=== PATIENT | male | born 1950 | race African-American/Black ===

== ENCOUNTER 2019-03-08 14:08 | Inpatient (IN) ==
[2019-03-08] MEDS ORDERED: LASIX PO PRN (19:49)
[2019-03-08] MEDS ORDERED: LASIX IV SCH (20:00)
[2019-03-08 20:41] LABS: BASO# 0.02 X1000 (0.0-0.2); BASO% 0.6 % (0.0-0.8); EOS# 0.24 X1000 (0.0-0.7); EOS% 6.6 % (0.0-10.0); HEMATOCRIT 25.5 % (42.0-52.0); HEMOGLOBIN 7.9 g/dL (14.0-18.0); LYMPH# 1.13 X1000 (1.2-3.4); LYMPH% 31.2 % (20.5-51.1); MCH 23.1 PG (27-31); MCV 74.6 FL (81-99); MONO% 16.6 % (1.7-9.3); NEUT# 1.63 X1000 (1.4-6.5); PLT 69 X1000 (130-400); RBC 3.42 XMIL (4.7-6.1); RDW 20.9 % (11.5-14.5); WBC 3.62 X1000 (4.8-10.8)
[2019-03-08] MEDS ORDERED: LIPITOR PO SCH (21:00)
[2019-03-08] MEDS ORDERED: NS 500 ML IV SCH (21:00)
[2019-03-08 21:01] LABS: IRON SATURATION 6 %; TIBC 419 ug/dL; TOTAL IRON 24 ug/dL (53-167); UNBOUND IRON 395 ug/dL (112-346)
[2019-03-08 21:29] LABS: ANISOCYTOSIS 1+; EOS 2 % (1-10); HYPOCHROM 2+; LYMPHS 40 % (21-51); MICROCYTOSIS 2+; MONO 13 % (1-9); SEGS 45 % (42-75)
[2019-03-08] MEDS: ENTRESTO 49 MG-51 MG TABLET PO SCH (21:48)
--- NOTE | 2019-03-08 22:41 | HISTORY AND PHYSICAL ---
CHIEF COMPLAINT: Fatigue and weakness. HISTORY OF PRESENT ILLNESS: He is a 68-year-old, male, came to my office after 6 months since last admission at [facility]. He was admitted last admission acute blood loss anemia due to severe epistaxis complicated by aspirin and Coumadin. He stopped taking Coumadin. He did require 5 units of packed RBC, and 1 unit of fresh frozen plasma with the rhino pack on the right side in July 2018. Today in my office, he appears to be pale and he has a little bit of shortness of breath. CBC: Hemoglobin 7, hematocrit 24. He has been admitted to the hospital basically for observation for blood transfusion. In the past, the patient had a negative GI workup by Dr. Shipley. PAST MEDICAL HISTORY: Ischemic cardiomyopathy, chronic congestive heart failure, EF 20%. Type 2 diabetes, gastroesophageal reflux disease with esophagitis, gout, hyperlipidemia, hypertension, nicotine dependency. History of ventricular tachycardia status post AICD, abnormal chest x-ray with the right-sided fibrosis. Abdominal aneurysm repair 2016. PAST SURGICAL HISTORY: Implantable cardioverter-defibrillator 2016. Lung surgery, right upper lobectomy, lung cancer by Dr. Shipley. AAA repair by Dr. Mitchell. MEDICINES: Amiodarone 200 mg daily, Lasix 40 daily, Protonix 40 daily, Lipitor 80 daily, Lanoxin 125 mcg daily, potassium 20 mEq daily, Neurontin 100 daily and Crestor 49/51 tab p.o. b.i.d., Lasix 10 daily. Warfarin was stopped. SOCIAL HISTORY: Single, one kid. No smoking, no alcohol. Living in [place]. Disabled from . FAMILY HISTORY: Father at the age of 68, not known. Mom from colon cancer at 78. HEALTH MAINTENANCE: Flu vaccine 2017, pneumococcal 2008. Last physical in March 2018, colonoscopy [address] Shipley. Hiatal hernia. Negative colonoscopy. REVIEW OF SYSTEMS: HEENT: No headache, no vision problem. No earache. No sore throat. Slightly fatigued. Cardiopulmonary: No chest pain, shortness of breath, PND, orthopnea. GI: No nausea, vomiting, abdominal pain, acid reflux symptoms. No bleeding per rectum. : No history of hesitancy, frequency, dysuria. No swelling of feet. No joint pain. Neurologic: No focal symptoms or weakness. PHYSICAL EXAMINATION: VITAL SIGNS: Temperature is 98, pulse 70, blood pressure 135/69. 6 feet 2 inches, 240 pounds. HEENT: Atraumatic, normocephalic. Pupils equal, react to light. Pale. TMs are normal. JVD is not elevated. CHEST: Bilateral air entry. HEART: Sounds are regular with a systolic murmur in the left lower sternal border. AICD placed. ABDOMEN: Belly is soft, nontender. Good bowel sounds. EXTREMITIES: Trace pedal edema. No neurological deficits. INVESTIGATIONS: CBC: White cell count 3.6, hematocrit 25, platelets 69, iron 24, TIBC 419. ASSESSMENT AND PLAN: 1. A 68-year-old, male, admitted to the hospital basically symptomatic anemia and Hemoccult stools. The patient stopped taking Coumadin and the patient is on amiodarone. Will follow up on surveillance. Do the thyroid function tests, LFTs and chest x-ray. 2. Nonsustained ventricular tachycardia, ischemic cardiomyopathy, on Cordarone 200 daily. Continue on digoxin, Lasix and Crestor. 3. Hyperlipidemia on Lipitor. 4. Check the CBC in the morning and will follow up. cc: Carlos Hendrickson MD
[2019-03-08 23:03] LABS: AGAP 9; ALB/GLOB RATIO 0.8; ALBUMIN 3.2 g/dL (3.5-5.0); ALKALINE PHOSPHATASE 165 U/L (32-122); BUN 10 mg/dL (8-22); CALCIUM 8.5 mg/dL (8.8-10.2); CHLORIDE 105 mmol/L (98-107); COSMO 277; CREATININE 1.2 mg/dL (0.7-1.2); ESTIMATED GFR > 60; GLUCOSE 98 mg/dL (70-104); GOT 82 U/L (10-34); GPT 68 U/L (10-44); POTASSIUM 3.6 mmol/L (3.5-5.1); SODIUM 139 mmol/L (136-145); TCO2 25 mmol/L (25-35); TOTAL BILIRUBIN 0.66 mg/dL (0.20-1.00); TOTAL PROTEIN 7.2 g/dL (6.3-8.3)
[2019-03-09] MEDS ORDERED: PROTONIX PO SCH (07:00)
[2019-03-09 07:32] LABS: BASO# 0.02 X1000 (0.0-0.2); BASO% 0.5 % (0.0-0.8); EOS# 0.29 X1000 (0.0-0.7); EOS% 7.5 % (0.0-10.0); HEMATOCRIT 27.8 % (42.0-52.0); HEMOGLOBIN 8.6 g/dL (14.0-18.0); LYMPH# 0.77 X1000 (1.2-3.4); LYMPH% 19.8 % (20.5-51.1); MCH 23.7 PG (27-31); MCHC 30.9 g/dL (33-37); MCV 76.6 FL (81-99); MONO# 0.68 X1000 (0.11-0.59); MONO% 17.5 % (1.7-9.3); NEUT# 2.12 X1000 (1.4-6.5); NEUT% 54.7 % (42.2-75.2); PLT 57 X1000 (130-400); RBC 3.63 XMIL (4.7-6.1); RDW 20.1 % (11.5-14.5); WBC 3.88 X1000 (4.8-10.8)
[2019-03-09 07:46] LABS: AGAP 7; BUN 10 mg/dL (8-22); CALCIUM 8.3 mg/dL (8.8-10.2); CHLORIDE 103 mmol/L (98-107); COSMO 272; CREATININE 1.1 mg/dL (0.7-1.2); ESTIMATED GFR > 60; GLUCOSE 125 mg/dL (70-104); POTASSIUM 3.4 mmol/L (3.5-5.1); SODIUM 136 mmol/L (136-145); TCO2 26 mmol/L (25-35)
[2019-03-09 07:56] LABS: EOS 4 % (1-10); LYMPHS 18 % (21-51); MONO 10 % (1-9); SEGS 68 % (42-75)
[2019-03-09 07:57] LABS: HYPOCHROM 1+; LARGE PLATELETS 1+
[2019-03-09 07:58] LABS: FREE T4 1.13 ng/dL (0.93-1.70); TSH 3.99 uIUmL (0.27-4.20)
[2019-03-09] MEDS ORDERED: KLOR-CON PO ONE (08:01)
--- NOTE | 2019-03-09 08:58 | Diag Imaging Result Doc PS360 ---
EXAM: CHEST-2 VIEWS 03/08/2019 HISTORY: SOB TECHNIQUE: PA and lateral chest COMMENT: There is cardiomegaly. There is blunting of the right costophrenic angle. There is some ill-defined opacity in the lateral right base which was also apparently present on 04/04/2017. IMPRESSION: Cardiomegaly. Pleural and parenchymal fibrosis on the right. Electronically signed by Clarence Infante 03/09/2019 8:55 AM
[2019-03-09] MEDS ORDERED: NEURONTIN PO SCH (09:00)
[2019-03-09] MEDS ORDERED: LASIX PO SCH (09:00)
[2019-03-09] MEDS ORDERED: CORDARONE PO SCH (09:00)
[2019-03-09] MEDS ORDERED: KLOR-CON PO SCH (09:00)
[2019-03-09] MEDS ORDERED: LANOXIN PO SCH (09:00)
[2019-03-09] MEDS: ENTRESTO 49 MG-51 MG TABLET PO SCH (09:42)
[2019-03-09] MEDS ORDERED: PNEUMOVAX 23 IM ONE (12:30)
[2019-03-09 12:50] VITALS: BP 127/73
[2019-03-09] MEDS ORDERED: LASIX IV ONE (13:00)
--- NOTE | 2019-03-13 15:21 | DISCHARGE SUMMARY ---
ADMISSION DATE: 03/08/2019 DISCHARGE DATE: 03/09/2019 DISCHARGING DIAGNOSIS: 1. Symptomatic anemia due to occult GI bleeding. SECONDARY DIAGNOSES: 1. Ischemic cardiomyopathy EF 20%. 2. Chronic systolic heart failure, stable. 3. Type 2 diabetes acid reflux disease with esophagitis. 4. Gout. 5. Hyperlipidemia. 6. Hypertension. 7. History of ventricular tachycardia status post AICD. 8. Abdominal aneurysm repair. PROCEDURES: Transfusion of 3 units of packed RBCs. BRIEF HISTORY: He is a 68-year-old male stopped taking Coumadin originally place for PAF and due to epistaxis, recurrent anemia. He has been doing very well. He was found to have pale hemoglobin 7, hematocrit 23 in my office. Initial Hemoccult was negative. He was admitted to the hospital basically for blood transfusion. He was given 3 units of packed RBCs. He was not able to give any Hemoccult stools. LABS: CBC: White cell count 3.8, hematocrit 27.8, platelets 57,000. SMA-7: Sodium 138, potassium 3.4, BUN 10, creatinine 1.1, glucose 125. Iron is low. TIBC is high. LFTs were slightly high. Thyroid function tests were normal. Chest x-ray was stable. Thrombocytopenia, stable. DISCHARGE INSTRUCTIONS: The patient was discharged home with the following instructions: 1. Cordarone 200 daily. 2. Slightly elevated LFTs. Continue to monitor every 6 months. Chest x-ray, LFTs and thyroid function tests, thrombocytopenia. 3. Discontinue Coumadin. 4. Lasix 40 daily. 5. Protonix 40 daily. 6. Lipitor 80 daily. 7. Lanoxin 125 mcg daily. 8. Potassium 10 mEq daily. 9. Neurontin 100 daily. 10. Entresto 49/51, one puff p.o. b.i.d. 11. Lasix 10 mg daily. 12. Follow up on Hemoccult stools x3 and previous EGD, colonoscopy was negative by Dr. Shipley and repeat CBC, BMP in my office next week. cc: MD Edu Dickerson
== END 2019-03-09 15:00 | disposition home or self-care (01) | DRG 812 ==
LOC: DIRADM 14:08 → 4N 16:43
PROVIDERS: ADMIT Internal Medicine; ATTEND Internal Medicine
CPT/HCPCS: 36430; 71020; 71046; 80048; 80053; 82728; 83540; 83550; 84439; 84443; 85025; 86850; 86900; 86901; 86920; 90732; A9270; J1940; J7040; P9016

== ENCOUNTER 2019-06-06 11:02 | Inpatient (IN) ==
[2019-06-06] MEDS ORDERED: NS 500 ML IV ONE (11:14)
[2019-06-06 16:41] LABS: MCHC 29.5 g/dL (33-37); MCV 77.8 FL (81-99); PLT 74 X1000 (130-400); RBC 2.57 XMIL (4.7-6.1); RDW 19.5 % (11.5-14.5); WBC 3.39 X1000 (4.8-10.8)
[2019-06-06 16:43] LABS: HEMOGLOBIN 5.9 g/dL (14.0-18.0)
[2019-06-06] MEDS ORDERED: NS 500 ML ONE (18:09)
[2019-06-06] MEDS: ENTRESTO 49 MG-51 MG TABLET PO SCH (20:58)
--- NOTE | 2019-06-07 02:55 | HISTORY AND PHYSICAL ---
CHIEF COMPLAINT: Symptomatic anemia. HISTORY OF PRESENT ILLNESS: He is a 69-year-old male. He came to my office for a physical yesterday. He appears to be pale. He stopped taking Coumadin due to occult GI bleeding in the past. The patient had a GI workup by Dr. Shipley. In my office yesterday, Hemoccult negative. Hemoglobin is 6, hematocrit 19. He has been admitted to the hospital today for evaluation of occult GI bleeding. Hemodynamics were stable. He needs a blood transfusion, probably will re-evaluate EGD and colonoscopy along with capsule endoscopy. A GI consult was obtained by Dr. Wiseman. The patient is not taking any anticoagulation. PAST MEDICAL HISTORY: 1. Ischemic cardiomyopathy. 2. Chronic congestive heart failure, EF 20%. 3. Type 2 diabetes. 4. Acid reflux disease with esophagitis. 5. Gout. 6. Hyperlipidemia. 7. Hypertension. 8. Nicotine dependency. 9. History of ventricular tachycardia, status post AICD. 10. Abnormal chest x-ray with right-sided fibrosis. 11. Abdominal aneurysm repair in 2016. PAST SURGICAL HISTORY: 1. AICD in 2016. 2. Right upper lobectomy by Dr. Shipley. 3. Abdominal aortic aneurysm repair by Dr. Mitchell. MEDICATIONS: Cordarone 200 daily; Lasix 40 daily; Protonix 40 daily; Lipitor 80 mg daily; Lanoxin 125 mcg daily; potassium 20 mEq daily; Neurontin 100 mg daily; Entresto 49/51 one tablet p.o. b.i.d.; Lasix 20 mg daily. ALLERGIES: Steroids. SOCIAL HISTORY: Single, one child. No smoking, no alcohol. Living in [place]. Disabled from . FAMILY HISTORY: Father at the age of 68, cause was not known. Mother of colon cancer at 78. HEALTH MAINTENANCE: Flu vaccine in 2018, pneumococcal 2019. Colonoscopy in [address] Shipley, reported as hiatal hernia. REVIEW OF SYSTEMS: HEENT: No headache, no vision problem. No dizziness. No sore throat. Neck: No goiter. No lymphadenopathy. Cardiopulmonary: No chest pain, shortness of breath, PND or orthopnea. Gastrointestinal: No nausea, vomiting or abdominal pain. No altered bowel habits. No bleeding per rectum. Genitourinary: No history of dysuria, hesitancy or frequency. No swelling of legs or cramping in the legs. No back pain. Neurologic: No focal symptoms or weakness. PHYSICAL EXAMINATION: VITAL SIGNS: Temperature is 97.3 degrees, pulse 79, blood pressure 115/61. HEENT: Pale. TMs are normal. Nose and throat within normal limits. NECK: Supple. No lymphadenopathy. No goiter. CHEST: Bilateral air entry. HEART: Sounds are regular. ABDOMEN: Belly is soft, nontender. RECTAL EXAM: Prostate is normal. Heme-negative stool. EXTREMITIES: No peripheral edema or cyanosis. NEUROLOGIC: No obvious neurological deficits. LABORATORY DATA: White cell count 3.3, hemoglobin 5.9, hematocrit is 20, MCV 77, platelets 74,000. ASSESSMENT AND PLAN: 1. A 69-year-old male admitted to the hospital with recurrent gastrointestinal bleeding. Stopped Coumadin from the previous admission, still he was anemic. Occult gastrointestinal bleeding. Needs further workup, transfusion of 2 units of packed red blood cells. Dr. Wiseman consult. 2. Reconcile home medications. 3. We will repeat the labs in the morning, orthostatic blood pressure. We will continue to monitor. cc: Carlos Hendrickson MD
[2019-06-07] MEDS: PROTONIX PO SCH ×2 (05:44→06:17)
[2019-06-07 08:10] LABS: HEMATOCRIT 21.3 % (42.0-52.0); HEMOGLOBIN 6.6 g/dL (14.0-18.0); MCV 80.7 FL (81-99); PLT 64 X1000 (130-400); RBC 2.64 XMIL (4.7-6.1); RDW 18.3 % (11.5-14.5); WBC 3.74 X1000 (4.8-10.8)
[2019-06-07] MEDS ORDERED: NS 500 ML IV ONE (08:13)
[2019-06-07] MEDS ORDERED: POTASSIUM CHLORIDE PO SCH (09:00)
[2019-06-07] MEDS: LASIX PO SCH (09:59)
[2019-06-07] MEDS: NEURONTIN PO SCH (09:59)
[2019-06-07] MEDS: ENTRESTO 49 MG-51 MG TABLET PO SCH ×2 (09:59→20:40)
[2019-06-07] MEDS: LIPITOR PO SCH (09:59)
[2019-06-07] MEDS: CORDARONE PO SCH (09:59)
[2019-06-07] MEDS: LANOXIN PO SCH (10:00)
--- NOTE | 2019-06-07 11:15 | Diag Imaging Result Doc PS360 ---
EXAM: US ABDOMEN-COMPLETE INDICATION: elevated liver function COMPARISON: None. FINDINGS: The gallbladder appears normal with no stones, wall thickening, or pericholecystic fluid. The common bile duct is normal in diameter. Sonographic Rebolledo's sign was reported to be negative. The liver is mildly prominent measuring up to 19.3 cm in length. The liver is unremarkable, otherwise. It exhibits normal echotexture with no discrete mass. Portal venous flow is hepatopetal. The pancreatic tail is obscured by gas. The visualized portion of the pancreas is unremarkable. The distal aorta is obscured by bowel gas. The remainder of the aorta is unremarkable. The spleen is mildly prominent measuring up to 13.9 cm in length. The kidneys are grossly unremarkable. IMPRESSION: Mild hepatosplenomegaly. Electronically signed by Gregory Isbell 06/07/2019 11:13 AM
[2019-06-07 12:50] LABS: AGAP 7; ALB/GLOB RATIO 0.9; ALBUMIN 3.1 g/dL (3.5-5.0); ALKALINE PHOSPHATASE 130 U/L (32-122); BUN 14 mg/dL (8-22); CALCIUM 7.9 mg/dL (8.8-10.2); CHLORIDE 107 mmol/L (98-107); COSMO 273; CREATININE 0.9 mg/dL (0.7-1.2); ESTIMATED GFR > 60; GLUCOSE 106 mg/dL (70-104); GOT 70 U/L (10-34); GPT 61 U/L (10-44); POTASSIUM 4.1 mmol/L (3.5-5.1); SODIUM 136 mmol/L (136-145); TCO2 22 mmol/L (25-35); TOTAL BILIRUBIN 0.59 mg/dL (0.20-1.00); TOTAL PROTEIN 6.7 g/dL (6.3-8.3)
[2019-06-07] MEDS ORDERED: GOLYTELY PO ONE (14:00)
[2019-06-07 18:07] LABS: RETIC% 0.99 % (0.8-2.1)
--- NOTE | 2019-06-07 19:17 | GASTROENTEROLOGY CONSULTATION ---
DATE: 06/07/2019 ATTENDING PHYSICIAN: Dr. Hendrickson. PRIMARY CARE DOCTORS: Dr. Hendrickson. REASON FOR CONSULTATION: Anemia and pancytopenia. 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 He presented Dr. Hendrickson's office and was noted to be pale. He had been anemic for many years. He had EGD and colonoscopy done a few years ago by Dr. Shipley which was normal. On admission, his hemoglobin was 6 and hematocrit 19. He was given 2 units of blood transfusion. The patient has been experiencing frequent epistaxis since September 2018. He has had 4 major episode of nose bleeding requiring ENT management and treatment. According to him, every time he has a massive nose he swallows blood and this makes his stools darker. He denies any vomiting blood or passing bright red blood in the stools. He has seen some darkening of the stool occasionally. During this admission, he is noted to be pancytopenic. His platelets are low as well and a low white cell count. The patient is noted to be evaluated by a biostatistics director. We will request a Hematology consultation. PAST MEDICAL HISTORY: Cardiomyopathy, congestive heart failure ejection fraction of 20%, type 2 diabetes, acid reflux esophagitis, gout, hyperlipidemia, hypertension, nicotine dependency, history of pancreatitis, cardiac status AICD. Abnormal chest x-ray showing right-sided fibrosis, abdominal aneurysm repair in 2016. PAST SURGICAL HISTORY: AICD in 2016, right upper lobectomy by Dr. Shipley, abdominal aortic aneurysm per Dr. Mitchell, EGD and colonoscopy done per the records on 03/24/[address] Shipley which showed hiatal hernia with mild gastritis. The colon was essentially normal. MEDICATIONS: In the hospital include: Amiodarone, Lipitor, digoxin, Lasix, Neurontin, Protonix, Entresto, normal saline given once and potassium chloride. The patient is on a heart healthy diet. ALLERGIES TO: Steroids and neuromuscular blockers. SOCIAL HISTORY: He is single. He has 1 child. Denies any smoking or alcohol. Lives in [place]. He is disabled from . used to work at . FAMILY HISTORY: Father at the age of 68, cause was not known. Mother of colon cancer at age of 78. REVIEW OF SYSTEMS: Denies any fevers, rigors, chills, chest pain. Does have shortness of breath, feeling weak and tired and has improved slightly since he received 2 units blood transfusion. Denies any nausea, vomiting, or vomiting blood. Does have some occasional dark stools. He has history of frequent epistaxis. The last major episode was 2 months ago. He does complain of easy bruising or bleeding. He denies any new neurological complaints. PHYSICAL EXAM: Vital signs: Temperature of 98.1 degrees, pulse of 72, respiratory 14, blood pressure 120/84, saturating 100% room air. Body weight of 242 pounds, BMI of 31.1. General: Moderately built, moderately nourished, lying in bed, in no acute distress. HEENT: Pale conjunctivae. No icterus. Pupils equal, reactive to light. Neck: Supple. Abdomen: Is soft, nontender, nondistended. No guarding or rebound. Extremities: No cyanosis, clubbing. In the lower extremities he has mild bilateral lower extremity edema. Neurologic: He is alert, awake, oriented x3. IMAGING: On the chest exam, he did have a pacemaker ASR and AICD noted in the left chest wall. LABS: Hemoglobin and hematocrit is 6.2, 21.3, white count 3.74, platelet count of 64,000, MCV of 80.7 his INR was checked in October was 1.27. IMPRESSION/PLAN: 1. Pancytopenia. 2. Recurrent epistaxis. 3. Severe symptomatic anemia. 4. Congestive heart failure with EF of 20%. 5. Ischemic cardiomyopathy of 20%. 6. Fair history of colon cancer in mother. 7. History of hiatal hernia and gastritis. RECOMMENDATIONS: 1. We will watch the blood counts. Transfuse as needed to keep hematocrit more than 27%. We will schedule him for esophagogastroduodenoscopy tomorrow with Dr. Wiseman. His risk of any procedure including esophagogastroduodenoscopy is slightly higher as the patient has ejection fraction of 20%, but he is severely anemic and we need to figure out for any kind of arteriovenous malformation causing internal bleeding. We will check for esophagogastroduodenoscopy and colonoscopy tomorrow Dr. Wiseman tomorrow. 2. Avoid any nonsteroidal anti-inflammatory drugs. 3. Will call Hematology consult for workup of pancytopenia develop any bone marrow disorders. He has been ordered ultrasound of the abdomen per Dr. Hendrickson. Follow the results. 4. We will also check his PT/INR today and a CMP tomorrow. 5. The above plans were discussed with the patient and all questions answered. Please call us with any further questions. cc: MD Carlos Rueda MD MTDD
[2019-06-07] MEDS: ICAR-C PO SCH (20:41)
--- NOTE | 2019-06-07 22:10 | PROGRESS NOTE ---
DATE: 06/07/2019 SUBJECTIVE: Patient did receive 2 units of packed RBC and hematocrit is not improving. Hemoccult negative stools. He also exhibiting pancytopenia, elevated LFTs and previous endoscopy workup was negative. He does have some esophagitis. Waiting for Dr. Wiseman consult. PHYSICAL EXAMINATION: Vital signs: Temperature is 97.2 degrees, pulse 72, blood pressure is stable. HEENT: Exam pale. Neck: Supple. Chest: Clear. Heart: Sounds are regular. Abdomen: Belly is soft, nontender. Neurologic: No obvious deficits. INVESTIGATIONS: CBC: White cell count 3.7, hematocrit 21, platelets 64,000. Sodium 136, potassium 4.1, BUN 14, creatinine 0.9, glucose 106, AST, ALT, alkaline phosphatase high. LDH is high. TSH is normal. ASSESSMENT AND PLAN: 1. Pancytopenia and also needs to rule out bone marrow problem. Consult with oncologist. We will check the folate and B12 levels and SPEP. 2. Elevated liver function tests. Patient is on Cordarone. We will also check the hepatitis profile and ultrasound of the abdomen. 3. He is still anemic. We will transfuse 2 units of packed RBCs. He needs a full workup. Continue Hemoccult stools and will repeat the labs in the morning. I appreciate Dr. Wiseman and Dr. Ba consults. LEVEL OF DOCUMENTATION: 25 minutes. cc: Carlos Hendrickson MD
[2019-06-08 08:03] LABS: BASO# 0.01 X1000 (0.0-0.2); BASO% 0.3 % (0.0-0.8); EOS# 0.15 X1000 (0.0-0.7); EOS% 4.2 % (0.0-10.0); HEMATOCRIT 26.3 % (42.0-52.0); HEMOGLOBIN 8.4 g/dL (14.0-18.0); LYMPH# 0.69 X1000 (1.2-3.4); LYMPH% 19.5 % (20.5-51.1); MCH 25.4 PG (27-31); MCHC 31.9 g/dL (33-37); MCV 79.5 FL (81-99); MONO# 0.63 X1000 (0.11-0.59); MONO% 17.8 % (1.7-9.3); NEUT# 2.05 X1000 (1.4-6.5); NEUT% 58.2 % (42.2-75.2); PLT 58 X1000 (130-400); RBC 3.31 XMIL (4.7-6.1); RDW 18.4 % (11.5-14.5); WBC 3.53 X1000 (4.8-10.8)
[2019-06-08] MEDS ORDERED: NS 500 ML IV ONE (08:10)
[2019-06-08 08:20] LABS: AGAP 6; ALB/GLOB RATIO 0.8; ALBUMIN 2.8 g/dL (3.5-5.0); ALKALINE PHOSPHATASE 117 U/L (32-122); BUN 10 mg/dL (8-22); CALCIUM 8.1 mg/dL (8.8-10.2); CHLORIDE 109 mmol/L (98-107); COSMO 274; ESTIMATED GFR > 60; GLUCOSE 88 mg/dL (70-104); GOT 68 U/L (10-34); GPT 57 U/L (10-44); IRON SATURATION 16 %; POTASSIUM 3.8 mmol/L (3.5-5.1); SODIUM 138 mmol/L (136-145); TCO2 23 mmol/L (25-35); TIBC 318 ug/dL; TOTAL BILIRUBIN 0.94 mg/dL (0.20-1.00); TOTAL IRON 52 ug/dL (53-167); TOTAL PROTEIN 6.2 g/dL (6.3-8.3); UNBOUND IRON 266 ug/dL (112-346)
[2019-06-08 08:24] LABS: INR 1.39; PROTIME 17.3 Seconds (11.0-16.0)
[2019-06-08 08:25] LABS: PTT 40.4 Seconds (22.3-41.8)
[2019-06-08 08:34] LABS: FERRITIN 76 ng/mL (30-400)
[2019-06-08 08:39] LABS: ANISOCYTOSIS 2+; EOS 4 % (1-10); LYMPHS 20 % (21-51); MICROCYTOSIS 2+; MONO 18 % (1-9); SEGS 58 % (42-75)
[2019-06-08 08:40] LABS: LARGE PLATELETS OCCASIONAL
[2019-06-08] MEDS ORDERED: NS 500 ML ONE (09:35)
[2019-06-08] MEDS ORDERED: DIPRIVAN 1% ONE ×2 (10:48→11:31)
[2019-06-08] MEDS ORDERED: XYLOCAINE-MPF 2% ONE (10:49)
--- NOTE | 2019-06-08 11:52 | ENDOSCOPY OPERATIVE NOTE ---
[facility] ENDOSCOPY OPERATIVE NOTE , PATIENT: Mikey Mondragon ADMISSION DATE: 06/08/2019 MR#: [id number] : 1950 EGD PROCEDURE REPORT PROCEDURE DATE: 06/08/2019 SURGEON: Yong Wiseman MD STATUS: inpatient CONE MARKER: PREOPERATIVE DIAGNOSIS: The patient is a 69 yr old male here for an EGD due to Epistaxis and anemia. PROCEDURE PERFORMED: EGD, diagnostic MEDICATIONS: Per Anesthesia TOPICAL ANESTHETIC: none CONSENT: The patient understands the risks and benefits of the procedure and understands that these r isks include, but are not limited to: sedation, allergic reaction, infection, perforation and/or bleeding. Alternative means of evaluation and treatment include, among others: physical exam, x-rays, and/or surgical intervention. The patient elects to proceed with this endoscopic procedure. HISORY AND PHYSICAL: 06/08/2019 function. Hand hygiene and appropriate measures for infection prevention was taken. After the risks, benefits and alternatives of the procedure were thoroughly explained, Informed consent was verified, confirmed and timeout was successfully executed by the treatment team. The patient was anesthetized with topical anesthesia and the PS04-f70 ([id number]) and [id number]-d47W ([id number]) endoscope was introduced through the mouth and advanced to the seco nd portion of the duodenum. Retroflexion was performed in the stomach and revealed no abnormalities. The gastroscope was then slowly withdrawn and removed. ESOPHAGUS: The EGD was normal. SPECIMENS REMOVED: No ADVERSE EVENTS: There were no complications. POSTOPERATIVE DIAGNOSIS: The EGD was normal RECOMMENDATIONS: Continue to colonoscopy procedure REPEAT EXAM: Yong Wiseman MD eSigned: Yong Wiseman MD 06/08/2019 11:51 AM cc: PATIENT NAME: Mikey Mondragon MR#: [id number]
--- NOTE | 2019-06-08 11:55 | ENDOSCOPY OPERATIVE NOTE ---
[facility] ENDOSCOPY OPERATIVE NOTE , PATIENT: Mikey Mondragon ADM DATE: 06/08/2019 MR #: [id number] : 1950 COLONOSCOPY PROCEDURE REPORT PROCEDURE DATE: 06/08/2019 SURGEON: Yong Wiseman MD STATUS: inpatient FINISHING TUNNEL OPERATOR: PREOPERATIVE DIAGNOSIS: The patient is a 69 yr old male here for a colonoscopy due to anemia, non-sp ecific and Epistaxis. PROCEDURE PERFORMED: Colonoscopy, diagnostic MEDICATIONS: Per Anesthesia PREP TYPE: GoLytely
[2019-06-08] MEDS: ICAR-C PO SCH ×2 (12:31→21:54)
[2019-06-08] MEDS: LIPITOR PO SCH (12:31)
[2019-06-08] MEDS: PROTONIX PO SCH (12:31)
[2019-06-08] MEDS: NEURONTIN PO SCH (12:31)
[2019-06-08] MEDS: ENTRESTO 49 MG-51 MG TABLET PO SCH ×2 (12:31→21:54)
[2019-06-08] MEDS: CENTRUM SILVER PO SCH (12:31)
[2019-06-08] MEDS: LANOXIN PO SCH (12:31)
[2019-06-08] MEDS: LASIX PO SCH (12:32)
[2019-06-08] MEDS: CORDARONE PO SCH (12:32)
[2019-06-08] MEDS: VENOFER 200 MG in NS 150 ML IV SCH (15:17)
--- NOTE | 2019-06-08 21:12 | PROGRESS NOTE ---
DATE: 06/08/2019 SUBJECTIVE: The patient is a little better. No complaints. Waiting for EGD and colonoscopy. CBC showed pancytopenia. B12, folate levels were normal. Elevated liver function tests as seen. REVIEW OF SYSTEMS: None reported. OBJECTIVE: Temperature is 98 degrees, pulse 69, blood pressure is 109/61.HEENT: Atraumatic, normocephalic. Pupils equal, reactive to light, and slightly pale. Chest: Clear. Heart: Sounds are regular. Belly is soft, nontender. No obvious deficits. INVESTIGATIONS: CBC: White cell count 3.5, hematocrit 26, platelets 58,000. Sodium 138, potassium 3.8, BUN 10, creatinine 1. LFTs were coming down. LDH is slightly high. B12, folate, TSH were normal. ASSESSMENT AND PLAN: 1. Elevated liver function tests. Check the hepatitis profile. Probably related to amiodarone versus history of passive congestion of the liver from underlying nonischemic cardiomyopathy. 2. Pancytopenia. Transfusion of 1 unit of packed red blood cells until the hematocrit is around 30. 3. Rule out bone marrow problems. Will consider Dr. Jordan for bone marrow biopsy. Will follow up on EGD and colonoscopy findings. LEVEL OF DOCUMENTATION: 25 minutes. cc: Carlos Hendrickson MD
[2019-06-09] MEDS: PROTONIX PO SCH (06:45)
[2019-06-09 07:23] LABS: BASO# 0.02 X1000 (0.0-0.2); BASO% 0.4 % (0.0-0.8); EOS# 0.23 X1000 (0.0-0.7); EOS% 5.1 % (0.0-10.0); HEMATOCRIT 30.7 % (42.0-52.0); HEMOGLOBIN 9.9 g/dL (14.0-18.0); LYMPH# 0.94 X1000 (1.2-3.4); LYMPH% 20.9 % (20.5-51.1); MCH 25.9 PG (27-31); MCHC 32.2 g/dL (33-37); MCV 80.4 FL (81-99); MONO% 15.6 % (1.7-9.3); NEUT# 2.61 X1000 (1.4-6.5); PLT 54 X1000 (130-400); RBC 3.82 XMIL (4.7-6.1); RDW 18.9 % (11.5-14.5)
[2019-06-09] MEDS: NEURONTIN PO SCH (09:47)
[2019-06-09] MEDS: CENTRUM SILVER PO SCH (09:47)
[2019-06-09] MEDS: LASIX PO SCH (09:47)
[2019-06-09] MEDS: ICAR-C PO SCH ×2 (09:48→20:58)
[2019-06-09] MEDS: CORDARONE PO SCH (09:48)
[2019-06-09] MEDS: LIPITOR PO SCH (09:48)
[2019-06-09] MEDS: VENOFER 200 MG in NS 150 ML IV SCH (09:48)
[2019-06-09] MEDS: ENTRESTO 49 MG-51 MG TABLET PO SCH ×2 (09:48→20:58)
[2019-06-09] MEDS: LANOXIN PO SCH (09:49)
[2019-06-09 13:04] LABS: HEPATITIS PROFILE ACUTE SEE COMMENTS
--- NOTE | 2019-06-09 15:13 | PROGRESS NOTE ---
DATE: 06/09/2019 SUBJECTIVE: The patient has no new complaints. He had an EGD and colonoscopy yesterday that were essentially normal. Dr. Hendricks has been consulted and apparently has come to see him but there is not a note on the chart yet. According the patient, sounds like Dr. Hendricks maybe planning bone marrow aspiration and biopsy. OBJECTIVE: Vital Signs: Temperature is 98.1 degrees Fahrenheit, pulse 72, respirations 18, blood pressure 110/64. HEENT: Normocephalic. EOMs intact. PERRLA. Throat clear. Lungs: Clear to auscultation and percussion without rhonchi, rales, or wheezes. Heart: Regular rate and rhythm without murmurs, gallops, friction rubs. Abdomen: Soft. Active bowel sounds. No organomegaly or tenderness. LABS: Hemoglobin has gone from 5.9 after transfusion up to 9.9, white count has gone from 3390, 4450. Hematocrit is 30.7, platelet count is 54,000. ASSESSMENT: 1. Pancytopenia. 2. Anemia. PLAN: Will continue to support, transfuse as necessary and will have hematology workup. cc: MD Carlos Talavera Jr, MD
[2019-06-10] MEDS: PROTONIX PO SCH (06:30)
[2019-06-10 06:59] LABS: BASO# 0.01 X1000 (0.0-0.2); BASO% 0.2 % (0.0-0.8); EOS# 0.28 X1000 (0.0-0.7); EOS% 6.1 % (0.0-10.0); HEMATOCRIT 30.7 % (42.0-52.0); HEMOGLOBIN 9.8 g/dL (14.0-18.0); MCH 25.8 PG (27-31); MCHC 31.9 g/dL (33-37); MCV 80.8 FL (81-99); MONO# 0.72 X1000 (0.11-0.59); MONO% 15.6 % (1.7-9.3); NEUT# 2.41 X1000 (1.4-6.5); NEUT% 52.1 % (42.2-75.2); PLT 65 X1000 (130-400); RDW 19.5 % (11.5-14.5); WBC 4.62 X1000 (4.8-10.8)
[2019-06-10 07:37] LABS: AGAP 9; BUN 11 mg/dL (8-22); CALCIUM 8.6 mg/dL (8.8-10.2); CHLORIDE 110 mmol/L (98-107); COSMO 283; CREATININE 1.1 mg/dL (0.7-1.2); ESTIMATED GFR > 60; GLUCOSE 82 mg/dL (70-104); SODIUM 143 mmol/L (136-145); TCO2 24 mmol/L (25-35)
[2019-06-10] MEDS: CENTRUM SILVER PO SCH (11:15)
[2019-06-10] MEDS: LIPITOR PO SCH (11:17)
[2019-06-10] MEDS: LANOXIN PO SCH (11:17)
[2019-06-10] MEDS: NEURONTIN PO SCH (11:17)
[2019-06-10] MEDS: ICAR-C PO SCH ×2 (11:17→21:11)
[2019-06-10] MEDS: LASIX PO SCH (11:18)
[2019-06-10] MEDS: ENTRESTO 49 MG-51 MG TABLET PO SCH ×2 (11:18→21:11)
[2019-06-10] MEDS: CORDARONE PO SCH (11:18)
--- NOTE | 2019-06-10 13:45 | PROGRESS NOTE ---
DATE: 06/10/2019 SUBJECTIVE: The patient has no complaints. He says he is feeling well. Slept well last night. VITAL SIGNS: Blood pressure is 112/58, respirations 16, pulse 67, temperature 98.5 degrees Fahrenheit. LABORATORY: White count of 4620, hemoglobin 9.8, platelet count 65,000, that shows that his platelet count is saying about stable, but his white count has come up a little bit and is slightly improved. Electrolytes and kidney functions are essentially normal. OBJECTIVE: HEENT: Normocephalic. EOMs intact. PERRLA. Throat clear. Lungs: Clear to auscultation and percussion without rhonchi, rales, or wheezes. Heart: Regular rate and rhythm without murmurs, gallops, friction rubs. Abdomen: Soft. Active bowel sounds. No organomegaly or tenderness. Neurologic: Exam intact grossly. ASSESSMENT: 1. Pancytopenia. 2. Anemia. PLAN: The patient will be seen by Hematology tomorrow. cc: MD Carlos Talavera Jr, MD
[2019-06-11] MEDS: PROTONIX PO SCH (06:30)
[2019-06-11 06:35] LABS: BASO# 0.02 X1000 (0.0-0.2); BASO% 0.5 % (0.0-0.8); EOS# 0.28 X1000 (0.0-0.7); EOS% 6.8 % (0.0-10.0); HEMATOCRIT 30.7 % (42.0-52.0); HEMOGLOBIN 9.7 g/dL (14.0-18.0); LYMPH# 0.91 X1000 (1.2-3.4); MCHC 31.6 g/dL (33-37); MCV 82.3 FL (81-99); MONO# 0.66 X1000 (0.11-0.59); MONO% 15.9 % (1.7-9.3); NEUT# 2.27 X1000 (1.4-6.5); NEUT% 54.8 % (42.2-75.2); PLT 71 X1000 (130-400); RBC 3.73 XMIL (4.7-6.1); RDW 20.5 % (11.5-14.5); WBC 4.14 X1000 (4.8-10.8)
[2019-06-11 06:44] LABS: AGAP 8; BUN 9 mg/dL (8-22); CALCIUM 8.4 mg/dL (8.8-10.2); CHLORIDE 106 mmol/L (98-107); COSMO 275; CREATININE 1.1 mg/dL (0.7-1.2); ESTIMATED GFR > 60; GLUCOSE 85 mg/dL (70-104); POTASSIUM 3.7 mmol/L (3.5-5.1); SODIUM 139 mmol/L (136-145); TCO2 25 mmol/L (25-35)
[2019-06-11] MEDS: NEURONTIN PO SCH (09:40)
[2019-06-11] MEDS: LASIX PO SCH (09:40)
[2019-06-11] MEDS: ICAR-C PO SCH ×2 (09:40→21:07)
[2019-06-11] MEDS: LANOXIN PO SCH (09:40)
[2019-06-11] MEDS: CORDARONE PO SCH (09:40)
[2019-06-11] MEDS: CENTRUM SILVER PO SCH (09:40)
[2019-06-11] MEDS: LIPITOR PO SCH (09:40)
[2019-06-11] MEDS: ENTRESTO 49 MG-51 MG TABLET PO SCH ×2 (09:40→21:07)
[2019-06-11 12:09] LABS: HCV BY PCR SEE COMMENTS
[2019-06-12] MEDS: PROTONIX PO SCH (06:22)
[2019-06-12 06:28] LABS: BASO# 0.02 X1000 (0.0-0.2); BASO% 0.4 % (0.0-0.8); EOS# 0.25 X1000 (0.0-0.7); EOS% 5.6 % (0.0-10.0); HEMATOCRIT 31.2 % (42.0-52.0); HEMOGLOBIN 9.8 g/dL (14.0-18.0); LYMPH# 1.04 X1000 (1.2-3.4); LYMPH% 23.2 % (20.5-51.1); MCH 26.1 PG (27-31); MCHC 31.4 g/dL (33-37); MCV 83.2 FL (81-99); MONO# 0.63 X1000 (0.11-0.59); NEUT# 2.55 X1000 (1.4-6.5); NEUT% 56.8 % (42.2-75.2); PLT 51 X1000 (130-400); RBC 3.75 XMIL (4.7-6.1); RDW 21.4 % (11.5-14.5); WBC 4.49 X1000 (4.8-10.8)
[2019-06-12 06:34] LABS: AGAP 11; BUN 11 mg/dL (8-22); CALCIUM 8.7 mg/dL (8.8-10.2); CHLORIDE 107 mmol/L (98-107); COSMO 280; CREATININE 0.9 mg/dL (0.7-1.2); ESTIMATED GFR > 60; GLUCOSE 86 mg/dL (70-104); POTASSIUM 3.8 mmol/L (3.5-5.1); SODIUM 141 mmol/L (136-145); TCO2 23 mmol/L (25-35)
--- NOTE | 2019-06-12 07:17 | PROGRESS NOTE ---
DATE: 06/11/2019 SUBJECTIVE: Events noted over the weekend, The patient did receive 5 units of packed RBC. GI workup was negative. Platelet count is low. Pancytopenia stable. As part of the elevated liver function tests, he has hepatosplenomegaly. The patient is on Cordarone. Hepatitis C antibody was positive. REVIEW OF SYSTEMS: None reported. PHYSICAL EXAMINATION: Vital signs: Temperature 98.1 degrees, pulse is 72, blood pressure is 118/72. HEENT: Within normal limits. Neck: Supple. No lymphadenopathy. No goiter. Chest: Bilateral air entry. Heart: Sounds are regular. Abdomen: Belly is soft, nontender. Good bowel sounds. Extremities: No peripheral edema. INVESTIGATIONS: CBC: White cell count 4.1, hematocrit 30.7, platelets 71,000. SMA 7 is normal. Hepatitis C PCR 7.5 million. Genotype is pending. ASSESSMENT AND PLAN: 1. Pancytopenia, low reticulocyte count. SPEPwas negative. Questionable bone marrow biopsy. 2. Elevated liver function tests and active hepatitis C infection. Need a liver biopsy as well with hepatosplenomegaly that might be to contributing thrombocytopenia. 3. Anemia status post 5 units of packed PRBCs. EGD, colonoscopy negative. 4. Follow up on genotype. Alpha-fetoprotein is normal. Ultrasound is negative. We will discuss with Dr. Ba. He has to be on Cordarone and Lipitor that augment worsening of the liver function tests. 5. Ischemic cardiomyopathy, stable. LEVEL OF DOCUMENTATION: 25 minutes. cc: Carlos Hendrickson MD [facility]
[2019-06-12] MEDS: CORDARONE PO SCH (10:02)
[2019-06-12] MEDS: NEURONTIN PO SCH (10:02)
[2019-06-12] MEDS: LIPITOR PO SCH (10:02)
[2019-06-12] MEDS: LANOXIN PO SCH (10:02)
[2019-06-12] MEDS: CENTRUM SILVER PO SCH (10:02)
[2019-06-12] MEDS: ICAR-C PO SCH ×2 (10:02→21:24)
[2019-06-12] MEDS: LASIX PO SCH (10:02)
[2019-06-12] MEDS: ENTRESTO 49 MG-51 MG TABLET PO SCH ×2 (10:03→21:24)
[2019-06-12 19:30] LABS: HEPATITIS C GENOTYPE SEE COMMENTS
--- NOTE | 2019-06-12 21:26 | PROGRESS NOTE ---
DATE: 06/12/2019 SUBJECTIVE: I spoke to Dr. Wiseman and Dr. Jordan about his pancytopenia and large hepatosplenomegaly. He has positive type 1A hepatitis C, more than 7 million viral load. He is already on amiodarone and Lipitor. The patient does not offer any complaints. OBJECTIVE: Temperature is 98 degrees. Vitals are stable. Pulse 70, blood pressure is 114/62.HEENT: Within normal limits. Neck: Supple. No lymphadenopathy. Chest: Bilateral air entry. Heart sounds are regular. Belly is soft, nontender. No ascites. INVESTIGATIONS: CBC: White cell count 4.4, hematocrit 31.2, platelets 51,000. Sodium 141, potassium 3.8, chloride 107, BUN 11, creatinine 0.9, glucose 86. Alpha- fetoprotein 7.5. ASSESSMENT AND PLAN: 1. Pancytopenia, significant declining hematocrit, reticulocyte count is low. We will hold of with bone marrow biopsy and this might be related to hypersplenism. No active gastrointestinal bleeding noted. Status post 5 units of packed red blood cells. 2. Elevated liver function tests due to hepatitis C type 1 genotype. Viral load more than [address] Wiseman. He canceled the liver biopsy and bone marrow biopsy. Consider hepatitis [employer] that will Predict with fibrosis of the liver. There is no need for liver biopsy at this time. If he is stable, then will discharge in the morning. Follow up as an outpatient. LEVEL OF DOCUMENTATION: 25 minutes. cc: Carlos Hendrickson MD MTDD
[2019-06-13] MEDS: PROTONIX PO SCH (06:23)
[2019-06-13 08:28] VITALS: BP 105/63
[2019-06-13] MEDS: ICAR-C PO SCH (08:30)
[2019-06-13] MEDS: NEURONTIN PO SCH (08:30)
[2019-06-13] MEDS: CENTRUM SILVER PO SCH (08:30)
[2019-06-13] MEDS: LIPITOR PO SCH (08:31)
[2019-06-13] MEDS: LASIX PO SCH (08:31)
[2019-06-13] MEDS: LANOXIN PO SCH (08:31)
[2019-06-13] MEDS: ENTRESTO 49 MG-51 MG TABLET PO SCH (08:31)
[2019-06-13] MEDS: CORDARONE PO SCH (08:31)
--- NOTE | 2019-06-15 21:30 | DISCHARGE SUMMARY ---
ADMISSION DATE: 06/06/2019 DISCHARGE DATE: 06/13/2019 DISCHARGING DIAGNOSES: 1. 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 2. Hepatic fibrosis due to chronic active hepatitis C type 1a genotype, viral load more than 7.5 million, with hepatitis C [employer] F4 3. Ischemic cardiomyopathy with ejection fraction of 21%. Stable. 4. Type 2 diabetes. 5. Acid reflux disease with esophagitis. 6. Gout. 7. Hyperlipidemia. 8. Hypertension. 9. Nicotine dependency. 10. History of ventricular tachycardia with status post automatic implantable cardioverter defibrillator. 11. Abnormal chest x-ray with right-sided fibrosis. 12. Abdominal aortic aneurysm repair in 2016. CONSULTS: Dr. Wiseman and Hematology/Oncology consult. PROCEDURES: 1. Transfusion of 5 units of packed red blood cells. 2. Esophagogastroduodenoscopy and colonoscopy. No obvious source of GI bleeding noted by Dr. Wiseman. 3. Radiology procedures: Abdominal ultrasound, mild hepatosplenomegaly, spleen size 13.9 cm. BRIEF HISTORY: Please see the H P that was done 06/06/2019. In brief, he is a 69-year-old, -[place] Citizen male, with the above problems, admitted to the hospital with a hemoglobin of 6, hematocrit 19, platelets low, low white cell count, pancytopenia, despite stopped taking anticoagulation. Negative GI workup. He had heme-negative stool. Admitted to the hospital for further workup. HOSPITAL COURSE: 1. He did not have any active signs of GI bleeding noted. Prior EGD and colon by Dr. Shipley was negative. 2. Hemoccult negative. The patient was given 5 units of packed RBCs. 3. Dr. Ba thinks he might rule out some bone marrow pathology. As a part of the workup, SPEP was negative. Vitamin B12, folate were normal. Reticulocyte count slightly low. 4. In the meantime, he has elevated liver function tests. I thought this could be from the amiodarone and Lipitor, and I ordered hepatitis profile and he was positive for hepatitis C. Further workup, ultrasound, hepatosplenomegaly. Alpha-fetoprotein is normal and genotype 1A hepatitis C with viral load more than 7.[address] Wiseman ordered hepatitis C [employer]. reported 0.94 with F4 with severe fibrosis. Dr. iWseman is going to monitor about this new development of hepatitis C infection as an outpatient. LABORATORY: At the time of discharge, his labs are as follows: CBC: White cell count 4.4, hematocrit 31.2, platelets 51,000. PT 17, INR 1.3. Sodium 141, potassium 3.8, chloride 107, BUN 11, creatinine 0.9, calcium 8.7. Alpha fetoprotein is normal. B12, folate levels are normal. We cancelled basically liver biopsy and bone marrow biopsy. MEDICATIONS: Amiodarone 200 daily, Lasix 40 daily, Protonix 40 daily, Lipitor 80 daily, Lanoxin 125 daily, potassium 10 mEq daily, Neurontin 100 daily, Entresto 49/51 one tablet p.o. b.i.d. DISCHARGE INSTRUCTIONS: Follow up in my office next week. cc: MD Yong Dickerson MD Manish Arora, MD MTDD
== END 2019-06-13 09:46 | disposition home or self-care (01) | DRG 815 ==
LOC: DIRADM 11:02 → EDIPHOLD 14:39 → 1N 16:59
PROVIDERS: ADMIT Internal Medicine; ATTEND Internal Medicine